=== PATIENT | female | born 1995 | race Caucasian/White ===

== ENCOUNTER 2021-02-18 19:21 | Emergency (ER) | payer MEDICAID, OTHER ==
[~2021-02-18] VITALS: Ht 162.6 cm; Wt 72.1 kg
[2021-02-19 01:25] VITALS: BP 152/84
== END 2021-02-19 01:33 | disposition home or self-care (01) ==
LOC: ER 19:21
DX: H66.91 Otitis media, unspecified, right ear (principal)